=== PATIENT | male | born 1935 | race Caucasian/White ===

== ENCOUNTER 2020-11-06 18:04 | Emergency (ER) | payer MEDICARE ==
[~2020-11-06] VITALS: Ht 172.7 cm; Wt 97.7 kg
[2020-11-06 19:00] LABS: BASOPHILS % 0.8 % (0.0-2.0); EOSINOPHILS % 3.3 % (0.0-5.0); HEMATOCRIT. 41.3 % (42.0-52.0); HEMOGLOBIN. 14.2 g/dL (14.0-18.0); LYMPHOCYTES % 42.6 % (20.0-50.0); MEAN CORPUSCULAR HEMOGLOBIN 31.2 pg (28.0-32.0); MEAN CORPUSCULAR VOLUME 90.8 fL (80.0-94.0); MEAN PLATELET VOLUME 8.5 fl (7.4-10.4); MONOCYTES % 8.3 % (2.0-8.0); PLATELET 228 x1000/uL (130-400); RED BLOOD CELL COUNT 4.55 mill/uL (4.7-6.1); RED CELL DISTRIBUTION WIDTH 13.7 % (11.6-14.6)
[2020-11-06 19:08] LABS: CHLORIDE 110 mEq/L (98-107)
[2020-11-06] MEDS ORDERED: IOHEXOL-350 100 ML BOTTLE ONE (19:08)
[2020-11-06 19:10] LABS: INR 1.1; PROTHROMBIN TIME 12.2 sec (9.6-11.0)
[2020-11-06 19:12] LABS: ETHANOL BLOOD < 10 mg/dL
[2020-11-06 19:15] LABS: LDL CHOLESTEROL 68 mg/dL (5-100)
[2020-11-06] MEDS ORDERED: *NO ASPIRIN X 24 HOURS XX SCH ×2 (19:15→19:30)
[2020-11-06] MEDS ORDERED: ALTEPLASE IV NR (19:30)
[2020-11-06] MEDS ORDERED: ALTEPLASE 50MG/VIAL IV NR (19:30)
[2020-11-06] MEDS ORDERED: SODIUM CHLORIDE 0.9% IV NR (19:30)
[2020-11-06 21:55] VITALS: BP 151/78
== END 2020-11-06 22:29 | disposition short-term general hospital (02) ==
LOC: ER 19:44 → CANBEDREQ 22:09 → ER 22:29
DX: I63.9 Cerebral infarction, unspecified (principal); I10 Essential (primary) hypertension
CPT/HCPCS: 36415; 70450; 70496; 70498; 71045; 80053; 80320; 82962; 83721; 84484; 85025; 85610; 93005; 99291; J2997; Q9967; J7050; G0480

== ENCOUNTER 2021-05-17 16:56 | Inpatient (IN) | payer MEDICARE ==
[~2021-05-17] VITALS: Ht 180.3 cm; Wt 71.8 kg
[2021-05-17] MEDS ORDERED: MORPHINE SULFATE 4 MG/ML CPJ (NOT FOR IM USE) IV STA (17:32)
[2021-05-17] MEDS ORDERED: ASPIRIN 81MG TABLET PO ONE (17:45)
[2021-05-17 17:46] LABS: BASOPHILS % 0.8 % (0.0-2.0); EOSINOPHILS % 4.5 % (0.0-5.0); HEMATOCRIT. 39.4 % (42.0-52.0); HEMOGLOBIN. 13.5 g/dL (14.0-18.0); LYMPHOCYTES % 33.6 % (20.0-50.0); MEAN CORPUSCULAR HEMOGLOBIN 32.4 pg (28.0-32.0); MEAN CORPUSCULAR VOLUME 94.5 fL (80.0-94.0); MEAN PLATELET VOLUME 8.4 fl (7.4-10.4); MONOCYTES % 9.9 % (2.0-8.0); NEUTROPHILS % 51.2 % (40.0-76.0); PLATELET 197 x1000/uL (130-400); RED BLOOD CELL COUNT 4.17 mill/uL (4.7-6.1); RED CELL DISTRIBUTION WIDTH 13.9 % (11.6-14.6)
[2021-05-17 17:54] LABS: CHLORIDE 112 mEq/L (98-107)
[2021-05-18] MEDS ORDERED: CLONIDINE 0.1MG TABLET PO PRN (09:00)
[2021-05-18] MEDS ORDERED: GUAIFENESIN 200MG/10ML SUGAR FREE UDC PO PRN (09:00)
[2021-05-18] MEDS ORDERED: ACETAMINOPHEN 325MG TABLET PO PRN (09:00)
[2021-05-18] MEDS ORDERED: MORPHINE SULFATE 2 MG/ML CPJ (NOT FOR IM USE) IV PRN (09:00)
[2021-05-18] MEDS ORDERED: ACETAMINOPHEN 650MG SUPP PR PRN (09:00)
[2021-05-18] MEDS ORDERED: DIGOXIN 500MCG/2ML AMP IV SCH (09:00)
[2021-05-18] MEDS ORDERED: ONDANSETRON HCL 4MG/2ML INJ IV PRN (09:00)
[2021-05-18] MEDS ORDERED: LEVOFLOXACIN 500MG PREMIX 100 ML IV SCH ×2 (09:00→10:00)
[2021-05-18] MEDS ORDERED: IPRATROPIUM/ALBUTEROL 0.5-3(2.5)MG/3ML NEB NEB PRN (09:00)
[2021-05-18] MEDS ORDERED: NA PHOS,M-B/NA PHOS,DI-BA ENEMA 118ML PR PRN (09:00)
[2021-05-18] MEDS ORDERED: HYDROCODONE/ACETAMINOPHEN 5/325MG TABLET PO PRN (09:00)
[2021-05-18] MEDS ORDERED: MAGNESIUM/ALUMINUM HYDROXIDE/SIMETHICONE 30ML UDC PO PRN (09:00)
[2021-05-18] MEDS ORDERED: DOCUSATE SODIUM 100MG CAPSULE PO PRN (09:00)
[2021-05-18] MEDS ORDERED: NALOXONE HCL 0.4MG/ML VIAL IV PRN (09:15)
[2021-05-18] MEDS: ASPIRIN 81MG EC TABLET PO SCH (09:24)
[2021-05-18] MEDS ORDERED: DILTIAZEM 125MG/125ML PMX 125 ML IV SCH (10:00)
[2021-05-18 10:59] LABS: CLARITY URINE CLOUDY (CLEAR); COLOR URINE YELLOW (YELLOW); KETONES URINE TRACE (NEGATIVE); LEUKOCYTE ESTERASE URINE 1+ (NEGATIVE); NITRITE URINE POSITIVE (NEGATIVE); OCCULT BLOOD URINE 1+ (NEGATIVE); PH URINE 6.5 (4.5-8.0); PROTEIN URINE NEGATIVE (NEGATIVE); SPECIFIC GRAVITY URINE 1.018 (1.005-1.030); UROBILINOGEN URINE 0.2 E.U./dL (0.2-1.0)
[2021-05-18 11:08] LABS: BASOPHILS % 0.9 % (0.0-2.0); EOSINOPHILS % 2.1 % (0.0-5.0); HEMATOCRIT. 41.2 % (42.0-52.0); LYMPHOCYTES % 25.5 % (20.0-50.0); MEAN CORPUSCULAR HEMOGLOBIN 31.9 pg (28.0-32.0); MEAN CORPUSCULAR VOLUME 94.3 fL (80.0-94.0); MONOCYTES % 8.1 % (2.0-8.0); NEUTROPHILS % 63.4 % (40.0-76.0); PLATELET 191 x1000/uL (130-400); RED BLOOD CELL COUNT 4.37 mill/uL (4.7-6.1); RED CELL DISTRIBUTION WIDTH 13.7 % (11.6-14.6)
[2021-05-18 11:16] LABS: CHLORIDE 111 mEq/L (98-107)
[2021-05-18 12:07] LABS: BG CARBOXYHEMOGLOBIN 0.6 % (0.5-1.5); BG DEOXYHEMOGLOBIN 2.6 % (0.0-5.0); BG FRACTION INSPIRED OXYGEN 28; BG HCO3 ACT 21.4 mmol/L (22.0-26.0); BG METHEMOGLOBIN 0.1 % (0.0-1.5); BG OXYGEN SATURATION 97.4 % (92.0-98.5); BG OXYHEMOGLOBIN 96.7 % (94.0-97.0); BG PCO2 32.6 mmHg (35.0-45.0); BG PH 7.435 (7.350-7.450); BG PO2 97.6 mmHg (75.0-100.0); BG TOTAL HEMOGLOBIN 13.8 g/dL (12.0-18.0); BG VENT MODE NASAL CANNULA
[2021-05-18] MEDS: DILTIAZEM HCL 60MG TABLET PO SCH ×2 (15:19→20:51)
[2021-05-18 16:00] VITALS: BP 132/71
[2021-05-18 16:40] VITALS: BP 132/71
[2021-05-18] MEDS ORDERED: METO-539 PO (17:07)
[2021-05-18] MEDS ORDERED: LOSA50TA41 PO (17:07)
[2021-05-18] MEDS ORDERED: APIX2.5T PO (17:07)
[2021-05-18] MEDS ORDERED: ATOR40TA70 PO (17:07)
[2021-05-18 17:47] VITALS: BP 138/72
[2021-05-18 20:00] VITALS: BP 136/80
[2021-05-18 20:50] LABS: CREATINE KINASE 58 IU/L (39-308)
[2021-05-18 20:51] LABS: CREATINE KINASE MB FRACTION 1.3 ng/mL (0.5-3.6)
[2021-05-18 22:00] VITALS: BP 142/71
[2021-05-18 23:21] LABS: CREATINE KINASE 63 IU/L (39-308)
[2021-05-18 23:22] LABS: CREATINE KINASE MB FRACTION 1.2 ng/mL (0.5-3.6)
[2021-05-18] MEDS: LORAZEPAM 0.5MG TABLET PO PRN (23:42)
[2021-05-18 23:53] LABS: INR 1.1; PROTHROMBIN TIME 12.1 sec (9.6-11.0)
[2021-05-19] VITALS (12 sets, daily range): BP systolic 110–154; BP diastolic 76–101
[2021-05-19] MEDS: DILTIAZEM HCL 60MG TABLET PO SCH (02:44)
[2021-05-19] MEDS: DILTIAZEM HCL 90MG TABLET PO SCH ×3 (06:16→17:33)
[2021-05-19 06:27] LABS: BASOPHILS % 0.9 % (0.0-2.0); EOSINOPHILS % 2.1 % (0.0-5.0); HEMOGLOBIN. 13.1 g/dL (14.0-18.0); LYMPHOCYTES % 27.4 % (20.0-50.0); MEAN CORPUSCULAR HEMOGLOBIN 32.3 pg (28.0-32.0); MEAN CORPUSCULAR VOLUME 91.4 fL (80.0-94.0); MEAN PLATELET VOLUME 7.7 fl (7.4-10.4); MONOCYTES % 8.6 % (2.0-8.0); PLATELET 202 x1000/uL (130-400); RED BLOOD CELL COUNT 4.05 mill/uL (4.7-6.1); RED CELL DISTRIBUTION WIDTH 13.7 % (11.6-14.6)
[2021-05-19 06:39] LABS: CHLORIDE 112 mEq/L (98-107)
[2021-05-19 06:46] LABS: LDL CHOLESTEROL 65 mg/dL (5-100)
[2021-05-19 06:47] LABS: HDL CHOLESTEROL 43 mg/dL (40-59)
[2021-05-19 06:48] LABS: T4 FREE 1.14 ng/dL (0.76-1.46)
[2021-05-19] MEDS: LORAZEPAM 0.5MG TABLET PO PRN (07:17)
[2021-05-19] MEDS: DIPHENHYDRAMINE 50MG/ML VIAL IV PRN ×2 (08:29→16:12)
[2021-05-19] MEDS ORDERED: *PATIENT'S OWN MEDICATION STORAGE XX SCH (08:30)
[2021-05-19] MEDS: ASPIRIN 81MG EC TABLET PO SCH (09:00)
[2021-05-19] MEDS: DIGOXIN 500MCG/2ML AMP IV SCH (10:26)
[2021-05-19] MEDS ORDERED: DILTIAZEM HCL 5MG/ML 5ML VIAL IV PRN (10:30)
[2021-05-19] MEDS: DILTIAZEM HCL 5MG/ML 5ML VIAL IV PRN (10:44)
[2021-05-19] MEDS ORDERED: LEVOFLOXACIN 250MG PREMIX 50 ML IV SCH (11:00)
[2021-05-19] MEDS ORDERED: AMIODARONE HCL 50MG/ML 3ML VIAL IV ONE (11:15)
[2021-05-19] MEDS: LEVOFLOXACIN 500MG PREMIX 100 ML IV SCH (11:43)
[2021-05-19] MEDS: ENOXAPARIN 80MG/0.8ML SYR SUBCUT SCH ×2 (11:47→21:18)
[2021-05-19] MEDS: LORAZEPAM 2MG/ML CPJ IV PRN (12:16)
[2021-05-19] MEDS ORDERED: AMIODARONE HCL 150 MG in DEXT 5% WATER 100 ML IV SCH (12:30)
[2021-05-19] MEDS: AMIODARONE HCL 900 MG in DEXT 5% WATER 482 ML IV SCH ×2 (13:15→21:28)
[2021-05-20] VITALS (11 sets, daily range): BP systolic 123–152; BP diastolic 67–93
[2021-05-20] MEDS: AMIODARONE HCL 900 MG in DEXT 5% WATER 482 ML IV SCH (05:41)
[2021-05-20 05:49] LABS: BASOPHILS % 0.6 % (0.0-2.0); EOSINOPHILS % 1.2 % (0.0-5.0); HEMATOCRIT. 40.8 % (42.0-52.0); HEMOGLOBIN. 14.1 g/dL (14.0-18.0); LYMPHOCYTES % 17.1 % (20.0-50.0); MEAN CORPUSCULAR HEMOGLOBIN 31.8 pg (28.0-32.0); MEAN CORPUSCULAR VOLUME 92.1 fL (80.0-94.0); MONOCYTES % 9.3 % (2.0-8.0); NEUTROPHILS % 71.8 % (40.0-76.0); PLATELET 206 x1000/uL (130-400); RED BLOOD CELL COUNT 4.43 mill/uL (4.7-6.1); RED CELL DISTRIBUTION WIDTH 13.2 % (11.6-14.6)
[2021-05-20] MEDS: DILTIAZEM HCL 90MG TABLET PO SCH ×4 (06:00→19:10)
[2021-05-20] MEDS: ASPIRIN 81MG EC TABLET PO SCH (09:15)
[2021-05-20] MEDS: ENOXAPARIN 80MG/0.8ML SYR SUBCUT SCH ×2 (09:15→21:43)
[2021-05-20] MEDS: AMIODARONE HCL 200 MG TABLET PO SCH ×2 (10:07→21:43)
[2021-05-20] MEDS ORDERED: LIDOCAINE HCL 1% 20ML VIAL (Pyxis) INJ ONE (10:07)
[2021-05-20] MEDS: DIPHENHYDRAMINE 50MG/ML VIAL IV PRN ×2 (10:08→23:53)
[2021-05-20] MEDS: LEVOFLOXACIN 500MG PREMIX 100 ML IV SCH (13:00)
[2021-05-20] MEDS: DIGOXIN 500MCG/2ML AMP IV SCH (19:11)
[2021-05-20] MEDS: LORAZEPAM 2MG/ML CPJ IV PRN (21:50)
[2021-05-21] VITALS (12 sets, daily range): BP systolic 100–136; BP diastolic 57–94
[2021-05-21] MEDS: DILTIAZEM HCL 5MG/ML 5ML VIAL IV PRN (00:07)
[2021-05-21] MEDS: DILTIAZEM HCL 90MG TABLET PO SCH ×2 (06:00)
[2021-05-21 06:46] LABS: BASOPHILS % 0.5 % (0.0-2.0); EOSINOPHILS % 0.9 % (0.0-5.0); HEMATOCRIT. 42.4 % (42.0-52.0); HEMOGLOBIN. 14.7 g/dL (14.0-18.0); LYMPHOCYTES % 23.4 % (20.0-50.0); MEAN CORPUSCULAR HEMOGLOBIN 31.8 pg (28.0-32.0); MEAN CORPUSCULAR VOLUME 91.8 fL (80.0-94.0); MEAN PLATELET VOLUME 8.6 fl (7.4-10.4); MONOCYTES % 11.2 % (2.0-8.0); PLATELET 215 x1000/uL (130-400); RED BLOOD CELL COUNT 4.63 mill/uL (4.7-6.1); RED CELL DISTRIBUTION WIDTH 13.4 % (11.6-14.6)
[2021-05-21] MEDS ORDERED: DIGOXIN 500MCG/2ML AMP IV SCH (08:15)
[2021-05-21] MEDS: AMIODARONE HCL 200 MG TABLET PO SCH ×2 (08:49→21:00)
[2021-05-21] MEDS: ASPIRIN 81MG EC TABLET PO SCH (08:49)
[2021-05-21] MEDS: ENOXAPARIN 80MG/0.8ML SYR SUBCUT SCH ×2 (08:49→21:44)
[2021-05-21] MEDS ORDERED: DILTIAZEM 125MG/125ML PMX 100 ML IV PRN (11:00)
[2021-05-21] MEDS: DILTIAZEM 125MG/125ML PMX 100 ML IV SCH ×2 (11:34→21:45)
[2021-05-21] MEDS: LEVOFLOXACIN 500MG PREMIX 100 ML IV SCH (11:37)
[2021-05-21] MEDS: MIDODRINE HCL 5MG TABLET PO SCH ×3 (11:38→17:00)
[2021-05-21] MEDS: METOPROLOL TARTRATE 50MG TABLET PO SCH ×2 (12:00→21:00)
[2021-05-21] MEDS: DEXT 5%/0.45% NACL 1000ML 1,000 ML IV SCH (15:30)
[2021-05-21] MEDS: DIGOXIN 500MCG/2ML AMP IV SCH (18:00)
[2021-05-21 21:22] LABS: BG BASE EXCESS -0.2 mmol/L (-2.0-2.0); BG CARBOXYHEMOGLOBIN 0.3 % (0.5-1.5); BG DEOXYHEMOGLOBIN 3.8 % (0.0-5.0); BG FRACTION INSPIRED OXYGEN 21; BG HCO3 ACT 23.6 mmol/L (22.0-26.0); BG METHEMOGLOBIN 0.1 % (0.0-1.5); BG OXYGEN SATURATION 96.2 % (92.0-98.5); BG OXYHEMOGLOBIN 95.8 % (94.0-97.0); BG PCO2 35.8 mmHg (35.0-45.0); BG PH 7.436 (7.350-7.450); BG PO2 80.9 mmHg (75.0-100.0); BG SAMPLE SITE RIGHT RADIAL; BG VENT MODE ROOM AIR
[2021-05-22] VITALS (9 sets, daily range): BP systolic 109–154; BP diastolic 61–78
[2021-05-22] MEDS: DEXT 5%/0.45% NACL 1000ML 1,000 ML IV SCH (04:37)
[2021-05-22 06:25] LABS: BASOPHILS % 0.4 % (0.0-2.0); EOSINOPHILS % 1.9 % (0.0-5.0); HEMATOCRIT. 37.6 % (42.0-52.0); HEMOGLOBIN. 13.1 g/dL (14.0-18.0); LYMPHOCYTES % 21.7 % (20.0-50.0); MEAN CORPUSCULAR VOLUME 91.8 fL (80.0-94.0); MEAN PLATELET VOLUME 8.3 fl (7.4-10.4); MONOCYTES % 11.2 % (2.0-8.0); NEUTROPHILS % 64.8 % (40.0-76.0); PLATELET 188 x1000/uL (130-400); RED CELL DISTRIBUTION WIDTH 13.2 % (11.6-14.6)
[2021-05-22] MEDS: DILTIAZEM 125MG/125ML PMX 100 ML IV SCH (07:00)
[2021-05-22] MEDS: ENOXAPARIN 80MG/0.8ML SYR SUBCUT SCH (08:09)
[2021-05-22] MEDS: AMIODARONE HCL 200 MG TABLET PO SCH (08:09)
[2021-05-22] MEDS: MIDODRINE HCL 5MG TABLET PO SCH ×2 (08:09→14:12)
[2021-05-22] MEDS: ASPIRIN 81MG EC TABLET PO SCH (08:10)
[2021-05-22] MEDS: METOPROLOL TARTRATE 50MG TABLET PO SCH (09:00)
[2021-05-22] MEDS ORDERED: LEVOFLOXACIN 250MG PREMIX 50 ML IV SCH (11:00)
[2021-05-22] MEDS ORDERED: DILTIAZEM HCL 60MG TABLET PO SCH (12:00)
[2021-05-22] MEDS ORDERED: METO-539 PO (12:16)
[2021-05-22] MEDS ORDERED: MIDO5TAB4 MT ×3 (12:16→12:18)
[2021-05-22] MEDS ORDERED: DILT60TA35 MT (12:16)
[2021-05-22] MEDS ORDERED: AMIO100T4 PO (12:16)
== END 2021-05-22 17:38 | disposition home or self-care (01) | DRG 308 ==
LOC: ER 16:56 → MICUSO 21:04 → ENRESERV 05-18 15:31 → 3WST 05-18 16:05
PROVIDERS: ADMIT Internal Medicine; ATTEND Internal Medicine
PROC: 05HY33Z Insertion of Infusion Device into Upper Vein, Percutaneous Approach (ICD-10-PCS; principal; 2021-05-20)
PROC: B543ZZA Ultrasonography of Right Jugular Veins, Guidance (ICD-10-PCS; 2021-05-20)
DX: I48.0 Paroxysmal atrial fibrillation (principal); G93.41 Metabolic encephalopathy; D68.59 Other primary thrombophilia; J98.11 Atelectasis; N17.9 Acute kidney failure, unspecified; I69.320 Aphasia following cerebral infarction; R79.89 Other specified abnormal findings of blood chemistry; Z20.822 Contact with and (suspected) exposure to COVID-19; D64.9 Anemia, unspecified; I10 Essential (primary) hypertension; I69.391 Dysphagia following cerebral infarction; Z82.49 Family history of ischemic heart disease and other diseases of the circulatory system; Z79.899 Other long term (current) drug therapy; Z87.891 Personal history of nicotine dependence; Z79.01 Long term (current) use of anticoagulants
CPT/HCPCS: 36415; 36600; 70551; 71045; 76770; 76937; 78580; 80048; 80053; 80061; 80162; 81003; 82375; 82550; 82553; 82805; 82962; 83735; 83880; 84439; 84443; 84484; 85025; 87426; 92610; 93005; 93306; 93970; 97166; 99285; C1725; J0282; J1160; J1200; J1650; J1956; J2060; J2270; J3490; J7060

== ENCOUNTER 2022-05-11 12:47 | Inpatient (IN) | payer MEDICARE ==
[~2022-05-11] VITALS: Ht 170.2 cm; Wt 65.8 kg
[~2022-05-11 12:47] MED LIST: AMIO100T4 PO; APIX2.5T PO; ATOR40TA70 PO; DIGO125T80 MT; DILT60TA35 MT; DULO20CA18 MT; LEVE10006 MT; METO-539 PO; MIDO5TAB4 MT
[2022-05-11 13:52] LABS: BG BASE EXCESS 1.3 mmol/L (-2.0-2.0); BG CARBOXYHEMOGLOBIN 0.3 % (0.5-1.5); BG DEOXYHEMOGLOBIN 3.8 % (0.0-5.0); BG FRACTION INSPIRED OXYGEN 21; BG HCO3 ACT 24.9 mmol/L (22.0-26.0); BG METHEMOGLOBIN 0.1 % (0.0-1.5); BG OXYGEN SATURATION 96.2 % (92.0-98.5); BG OXYHEMOGLOBIN 95.8 % (94.0-97.0); BG PCO2 35.5 mmHg (35.0-45.0); BG PH 7.463 (7.350-7.450); BG PO2 84.7 mmHg (75.0-100.0); BG SAMPLE SITE RIGHT RADIAL; BG VENT MODE ROOM AIR
[2022-05-11 14:10] LABS: BASOPHILS % 0.5 % (0.0-2.0); EOSINOPHILS % 0.1 % (0.0-5.0); HEMATOCRIT. 30.7 % (42.0-52.0); HEMOGLOBIN. 10.6 g/dL (14.0-18.0); LYMPHOCYTES % 7.7 % (20.0-50.0); MEAN CORPUSCULAR HEMOGLOBIN 33.7 pg (28.0-32.0); MEAN CORPUSCULAR VOLUME 97.6 fL (80.0-94.0); MEAN PLATELET VOLUME 7.8 fl (7.4-10.4); MONOCYTES % 5.3 % (2.0-8.0); NEUTROPHILS % 86.4 % (40.0-76.0); PLATELET 199 x1000/uL (130-400); RED BLOOD CELL COUNT 3.14 mill/uL (4.7-6.1); RED CELL DISTRIBUTION WIDTH 14.7 % (11.6-14.6)
[2022-05-11 14:19] LABS: INR 1.1; PROTHROMBIN TIME 11.8 sec (9.6-11.0)
[2022-05-11 14:23] LABS: CHLORIDE 107 mEq/L (98-107)
[2022-05-11 14:39] LABS: CREATINE KINASE 65 IU/L (39-308); ETHANOL BLOOD < 10 mg/dL
[2022-05-11] MEDS ORDERED: SODIUM CHLORIDE 0.9% 500 ML IV ONE (16:00)
[2022-05-11] MEDS ORDERED: LEVOTHYROXINE SODIUM 100 MCG/ VIAL IV NR (16:00)
[2022-05-11] MEDS ORDERED: SODIUM CHLORIDE 0.45% 1,000 ML IV ONE (17:15)
[2022-05-11] MEDS ORDERED: ONDANSETRON HCL 4MG/2ML INJ IV PRN (17:15)
[2022-05-11] MEDS ORDERED: DOCUSATE SODIUM 100MG CAPSULE PO SCH (17:15)
[2022-05-11] MEDS ORDERED: ACETAMINOPHEN 325MG TABLET PO PRN (17:15)
[2022-05-11 17:46] LABS: T4 FREE 0.41 ng/dL (0.76-1.46)
[2022-05-11 18:00] VITALS: BP 111/62
[2022-05-11 20:00] VITALS: BP 132/67
[2022-05-12] VITALS: BP 122/63
[2022-05-12 00:55] LABS: CLARITY URINE CLOUDY (CLEAR); COLOR URINE DARK YELLOW (YELLOW); KETONES URINE 1+ (NEGATIVE); LEUKOCYTE ESTERASE URINE NEGATIVE (NEGATIVE); NITRITE URINE NEGATIVE (NEGATIVE); OCCULT BLOOD URINE NEGATIVE (NEGATIVE); PH URINE 5.5 (4.5-8.0); PROTEIN URINE TRACE (NEGATIVE); SPECIFIC GRAVITY URINE 1.027 (1.005-1.030)
[2022-05-12 01:05] LABS: CREATINE KINASE MB FRACTION 1.3 ng/mL (0.5-3.6)
[2022-05-12 01:16] LABS: *AMPHETAMINES SCREEN URINE NEGATIVE (NEGATIVE); *BARBITURATES SCREEN URINE NEGATIVE (NEGATIVE); *BENZODIAZEPINES SCREEN URINE NEGATIVE (NEGATIVE); *COCAINE SCREEN URINE NEGATIVE (NEGATIVE); CANNABINOID URINE SCREEN NEGATIVE (NEGATIVE); METHADONE URINE SCREEN NEGATIVE (NEGATIVE); OPIATES URINE SCREEN NEGATIVE (NEGATIVE); PHENCYCLIDINE URINE SCREEN NEGATIVE (NEGATIVE)
[2022-05-12 04:00] VITALS: BP 127/68
[2022-05-12 07:25] LABS: CREATINE KINASE 36 IU/L (39-308); CREATINE KINASE MB FRACTION < 1.0 ng/mL (0.5-3.6)
[2022-05-12 08:00] VITALS: BP 127/66
[2022-05-12] MEDS: DOCUSATE SODIUM SUGAR FREE 100MG/10ML UDC PO SCH ×2 (08:46→16:33)
[2022-05-12] MEDS ORDERED: ENOXAPARIN 40MG/0.4ML SYR SUBCUT SCH (09:00)
[2022-05-12] MEDS ORDERED: SODIUM CHLORIDE 0.45% 1,000 ML IV SCH (11:45)
[2022-05-12 12:00] VITALS: BP 133/70
[2022-05-12] MEDS ORDERED: LEVOTHYROXINE SODIUM 100 MCG/ VIAL IV SCH (13:00)
[2022-05-12 16:00] VITALS: BP 105/72
[2022-05-12] MEDS: DEXT 5%/0.45% NACL 1000ML 1,000 ML IV SCH (17:19)
[2022-05-12] MEDS ORDERED: VANCOMYCIN 2,000 MG in DEXT 5% WATER 500 ML IV NR (19:00)
[2022-05-12 20:00] VITALS: BP 133/70
[2022-05-13] VITALS: BP 138/71
[2022-05-13 04:00] VITALS: BP 134/65
[2022-05-13] MEDS: DOCUSATE SODIUM SUGAR FREE 100MG/10ML UDC PO SCH ×2 (09:00→16:08)
[2022-05-13] MEDS: APIXABAN 2.5 MG TABLET PO SCH ×2 (09:00→16:08)
[2022-05-13] MEDS: DEXT 5%/0.45% NACL 1000ML 1,000 ML IV SCH (10:14)
[2022-05-13 10:48] LABS: BG BASE EXCESS 1.4 mmol/L (-2.0-2.0); BG CARBOXYHEMOGLOBIN 0.3 % (0.5-1.5); BG DEOXYHEMOGLOBIN 2.6 % (0.0-5.0); BG HCO3 ACT 24.9 mmol/L (22.0-26.0); BG METHEMOGLOBIN 0.3 % (0.0-1.5); BG OXYGEN SATURATION 97.4 % (92.0-98.5); BG OXYHEMOGLOBIN 96.8 % (94.0-97.0); BG PCO2 34.9 mmHg (35.0-45.0); BG PH 7.471 (7.350-7.450); BG PO2 108.2 mmHg (75.0-100.0); BG SAMPLE SITE RIGHT RADIAL; BG TOTAL HEMOGLOBIN 10.1 g/dL (12.0-18.0); BG VENT MODE ROOM AIR
[2022-05-13] MEDS: LEVOTHYROXINE SODIUM 100 MCG/ VIAL IV SCH (11:31)
[2022-05-13 12:00] VITALS: BP 131/72
[2022-05-13] MEDS ORDERED: CEFTRIAXONE 2 G PREMIX 50 ML IV SCH (14:45)
[2022-05-13 16:00] VITALS: BP 120/62
[2022-05-13] MEDS: CEFTRIAXONE 2 G in DEXTROSE 5% WATER 50 ML IV SCH (16:08)
[2022-05-13 16:39] LABS: BASOPHILS % 0.5 % (0.0-2.0); EOSINOPHILS % 0.8 % (0.0-5.0); HEMATOCRIT. 31.6 % (42.0-52.0); LYMPHOCYTES % 12.7 % (20.0-50.0); MEAN CORPUSCULAR HEMOGLOBIN 33.9 pg (28.0-32.0); MEAN CORPUSCULAR VOLUME 96.8 fL (80.0-94.0); MEAN PLATELET VOLUME 7.5 fl (7.4-10.4); MONOCYTES % 6.8 % (2.0-8.0); NEUTROPHILS % 79.2 % (40.0-76.0); PLATELET 176 x1000/uL (130-400); RED BLOOD CELL COUNT 3.26 mill/uL (4.7-6.1); RED CELL DISTRIBUTION WIDTH 14.3 % (11.6-14.6)
[2022-05-13 20:00] VITALS: BP 127/64
[2022-05-13] MEDS ORDERED: VANCOMYCIN 1G PREMIX 200 ML IV SCH (20:00)
[2022-05-14] VITALS: BP 120/61
[2022-05-14] MEDS: DEXT 5%/0.45% NACL 1000ML 1,000 ML IV SCH ×2 (02:20→19:04)
[2022-05-14 04:00] VITALS: BP 122/61
[2022-05-14 08:15] VITALS: BP 123/66
[2022-05-14] MEDS: APIXABAN 2.5 MG TABLET PO SCH ×2 (10:36→17:00)
[2022-05-14] MEDS: DOCUSATE SODIUM SUGAR FREE 100MG/10ML UDC PO SCH ×2 (10:36→17:00)
[2022-05-14] MEDS: LEVOTHYROXINE SODIUM 100 MCG/ VIAL IV SCH (10:36)
[2022-05-14 12:00] VITALS: BP 134/90
[2022-05-14] MEDS: CEFTRIAXONE 2 G in DEXTROSE 5% WATER 50 ML IV SCH (13:54)
[2022-05-14] MEDS: METRONIDAZOLE 500MG TABLET PO SCH ×3 (14:00→21:08)
[2022-05-14] MEDS: CLONIDINE 0.1MG TABLET PO SCH ×2 (15:22→21:08)
[2022-05-14 16:00] VITALS: BP 135/65
[2022-05-14] MEDS ORDERED: KCL 20MEQ/100ML PREMIX 100 ML IV NR (16:00)
[2022-05-14 20:00] VITALS: BP 115/60
[2022-05-14] MEDS ORDERED: VANCOMYCIN 750MG PREMIX 150 ML IV NR (21:00)
[2022-05-15] VITALS: BP 118/63
[2022-05-15 04:00] VITALS: BP 109/73
[2022-05-15] MEDS: CLONIDINE 0.1MG TABLET PO SCH ×3 (05:59→21:04)
[2022-05-15] MEDS: METRONIDAZOLE 500MG TABLET PO SCH ×3 (05:59→21:04)
[2022-05-15 06:16] LABS: BASOPHILS % 0.7 % (0.0-2.0); EOSINOPHILS % 1.4 % (0.0-5.0); HEMATOCRIT. 27.2 % (42.0-52.0); HEMOGLOBIN. 9.6 g/dL (14.0-18.0); LYMPHOCYTES % 28.4 % (20.0-50.0); MEAN CORPUSCULAR HEMOGLOBIN 33.8 pg (28.0-32.0); MEAN CORPUSCULAR VOLUME 96.1 fL (80.0-94.0); MEAN PLATELET VOLUME 7.7 fl (7.4-10.4); MONOCYTES % 8.4 % (2.0-8.0); NEUTROPHILS % 61.1 % (40.0-76.0); PLATELET 174 x1000/uL (130-400); RED BLOOD CELL COUNT 2.83 mill/uL (4.7-6.1); RED CELL DISTRIBUTION WIDTH 14.3 % (11.6-14.6)
[2022-05-15 07:44] LABS: CHLORIDE 106 mEq/L (98-107)
[2022-05-15 08:00] VITALS: BP 131/69
[2022-05-15] MEDS: LEVOTHYROXINE SODIUM 100 MCG/ VIAL IV SCH (09:25)
[2022-05-15] MEDS: DOCUSATE SODIUM SUGAR FREE 100MG/10ML UDC PO SCH ×2 (09:25→17:55)
[2022-05-15] MEDS: APIXABAN 2.5 MG TABLET PO SCH ×2 (09:25→17:55)
[2022-05-15] MEDS: KCL 20MEQ/100ML PREMIX 100 ML IV SCH ×2 (11:51→14:35)
[2022-05-15 12:00] VITALS: BP 132/82
[2022-05-15] MEDS: DEXT 5%/0.45% NACL 1000ML 1,000 ML IV SCH (12:22)
[2022-05-15] MEDS: CEFTRIAXONE 2 G in DEXTROSE 5% WATER 50 ML IV SCH (17:54)
[2022-05-15 20:00] VITALS: BP 111/64
[2022-05-15] MEDS ORDERED: VANCOMYCIN 750MG PREMIX 150 ML IV SCH (21:00)
[2022-05-16] VITALS: BP 125/65
[2022-05-16] MEDS: DEXT 5%/0.45% NACL 1000ML 1,000 ML IV SCH ×2 (00:40→15:06)
[2022-05-16 04:00] VITALS: BP 125/71
[2022-05-16] MEDS: METRONIDAZOLE 500MG TABLET PO SCH ×3 (05:26→21:33)
[2022-05-16] MEDS: CLONIDINE 0.1MG TABLET PO SCH ×4 (05:27→21:30)
[2022-05-16 08:00] VITALS: BP 140/73
[2022-05-16] MEDS: LEVOTHYROXINE SODIUM 100 MCG/ VIAL IV SCH (09:03)
[2022-05-16] MEDS: APIXABAN 2.5 MG TABLET PO SCH ×2 (09:03→18:14)
[2022-05-16] MEDS: DOCUSATE SODIUM SUGAR FREE 100MG/10ML UDC PO SCH ×2 (09:03→17:00)
[2022-05-16 12:00] VITALS: BP 116/57
[2022-05-16] MEDS: CEFTRIAXONE 2 G in DEXTROSE 5% WATER 50 ML IV SCH (15:09)
[2022-05-16 16:00] VITALS: BP 106/54
[2022-05-16 20:00] VITALS: BP 98/56
[2022-05-16] MEDS ORDERED: VANCOMYCIN 1G PREMIX 200 ML IV SCH (20:00)
[2022-05-17] VITALS: BP 114/55
[2022-05-17] MEDS: DEXT 5%/0.45% NACL 1000ML 1,000 ML IV SCH ×2 (01:30→14:21)
[2022-05-17 04:00] VITALS: BP 155/76
[2022-05-17] MEDS: METRONIDAZOLE 500MG TABLET PO SCH ×3 (05:35→22:16)
[2022-05-17] MEDS: CLONIDINE 0.1MG TABLET PO SCH ×3 (05:35→22:16)
[2022-05-17 07:30] VITALS: BP 137/74
[2022-05-17 08:40] LABS: HEMATOCRIT. 28.4 % (42.0-52.0); MEAN CORPUSCULAR HEMOGLOBIN 34.2 pg (28.0-32.0); MEAN CORPUSCULAR VOLUME 97.1 fL (80.0-94.0); MEAN PLATELET VOLUME 7.9 fl (7.4-10.4); PLATELET 183 x1000/uL (130-400); RED BLOOD CELL COUNT 2.92 mill/uL (4.7-6.1); RED CELL DISTRIBUTION WIDTH 14.4 % (11.6-14.6)
[2022-05-17 09:08] LABS: CHLORIDE 104 mEq/L (98-107)
[2022-05-17 09:17] LABS: HDL CHOLESTEROL 40 mg/dL (40-59); LDL CHOLESTEROL 66 mg/dL (5-100)
[2022-05-17] MEDS: DOCUSATE SODIUM SUGAR FREE 100MG/10ML UDC PO SCH ×2 (09:20→17:00)
[2022-05-17] MEDS: LEVOTHYROXINE SODIUM 100 MCG/ VIAL IV SCH (09:20)
[2022-05-17] MEDS: APIXABAN 2.5 MG TABLET PO SCH ×2 (09:20→17:00)
[2022-05-17 11:49] VITALS: BP 153/83
[2022-05-17 12:25] LABS: PLATELET ESTIMATE NORMAL
[2022-05-17] MEDS: CEFTRIAXONE 2 G in DEXTROSE 5% WATER 50 ML IV SCH (14:20)
[2022-05-17 16:00] VITALS: BP 134/66
[2022-05-17 20:00] VITALS: BP 139/69
[2022-05-18] VITALS: BP 147/71
[2022-05-18] MEDS: DEXT 5%/0.45% NACL 1000ML 1,000 ML IV SCH ×2 (03:10→15:38)
[2022-05-18 04:00] VITALS: BP 124/66
[2022-05-18] MEDS: METRONIDAZOLE 500MG TABLET PO SCH ×3 (05:39→21:49)
[2022-05-18] MEDS: CLONIDINE 0.1MG TABLET PO SCH ×3 (05:39→21:49)
[2022-05-18 06:11] LABS: CHLORIDE 105 mEq/L (98-107)
[2022-05-18 08:00] VITALS: BP 103/61
[2022-05-18] MEDS: DOCUSATE SODIUM SUGAR FREE 100MG/10ML UDC PO SCH ×2 (09:12→18:30)
[2022-05-18] MEDS: APIXABAN 2.5 MG TABLET PO SCH ×2 (09:12→18:30)
[2022-05-18] MEDS: LEVOTHYROXINE SODIUM 100 MCG/ VIAL IV SCH (09:13)
[2022-05-18 09:48] LABS: BASOPHILS % 0.5 % (0.0-2.0); EOSINOPHILS % 0.2 % (0.0-5.0); HEMATOCRIT. 23.9 % (42.0-52.0); LYMPHOCYTES % 14.4 % (20.0-50.0); MEAN CORPUSCULAR HEMOGLOBIN 32.9 pg (28.0-32.0); MEAN CORPUSCULAR VOLUME 95.8 fL (80.0-94.0); MEAN PLATELET VOLUME 7.5 fl (7.4-10.4); MONOCYTES % 7.8 % (2.0-8.0); NEUTROPHILS % 77.1 % (40.0-76.0); PLATELET 175 x1000/uL (130-400); RED BLOOD CELL COUNT 2.49 mill/uL (4.7-6.1); RED CELL DISTRIBUTION WIDTH 14.5 % (11.6-14.6)
[2022-05-18 09:49] LABS: HEMOGLOBIN. 8.2 g/dL (14.0-18.0)
[2022-05-18 12:00] VITALS: BP 128/71
[2022-05-18] MEDS ORDERED: HALOPERIDOL LACTATE 5MG/ML VIAL IM NR (14:30)
[2022-05-18] MEDS: CEFTRIAXONE 2 G in DEXTROSE 5% WATER 50 ML IV SCH (14:52)
[2022-05-18 16:00] VITALS: BP 112/57
[2022-05-18 20:00] VITALS: BP 111/59
[2022-05-19] VITALS: BP 127/70
[2022-05-19 04:00] VITALS: BP 110/65
[2022-05-19] MEDS: DEXT 5%/0.45% NACL 1000ML 1,000 ML IV SCH ×2 (04:13→16:11)
[2022-05-19] MEDS: METRONIDAZOLE 500MG TABLET PO SCH ×3 (05:58→21:07)
[2022-05-19] MEDS: CLONIDINE 0.1MG TABLET PO SCH ×3 (05:58→21:07)
[2022-05-19 07:22] LABS: BASOPHILS % 0.7 % (0.0-2.0); EOSINOPHILS % 0.9 % (0.0-5.0); HEMATOCRIT. 21.3 % (42.0-52.0); HEMOGLOBIN. 7.4 g/dL (14.0-18.0); LYMPHOCYTES % 14.3 % (20.0-50.0); MEAN CORPUSCULAR HEMOGLOBIN 33.6 pg (28.0-32.0); MEAN CORPUSCULAR VOLUME 96.7 fL (80.0-94.0); MEAN PLATELET VOLUME 7.8 fl (7.4-10.4); MONOCYTES % 6.6 % (2.0-8.0); NEUTROPHILS % 77.5 % (40.0-76.0); PLATELET 161 x1000/uL (130-400); RED CELL DISTRIBUTION WIDTH 14.4 % (11.6-14.6)
[2022-05-19 08:00] VITALS: BP 136/74
[2022-05-19 08:02] LABS: CHLORIDE 104 mEq/L (98-107)
[2022-05-19] MEDS ORDERED: LIDOCAINE HCL/PF 1% 10 MG/ML 5ML VIAL ONE (08:45)
[2022-05-19] MEDS: DOCUSATE SODIUM SUGAR FREE 100MG/10ML UDC PO SCH ×2 (09:41→21:15)
[2022-05-19] MEDS: APIXABAN 2.5 MG TABLET PO SCH ×2 (09:41→21:07)
[2022-05-19] MEDS: LEVOTHYROXINE SODIUM 100 MCG/ VIAL IV SCH (09:41)
[2022-05-19 12:00] VITALS: BP 118/64
[2022-05-19] MEDS ORDERED: POTASSIUM CHLORIDE 20MEQ/PACKET PO NR (12:15)
[2022-05-19] MEDS: CEFTRIAXONE 2 G in DEXTROSE 5% WATER 50 ML IV SCH (13:27)
[2022-05-19] MEDS ORDERED: NA PHOS,M-B/NA PHOS,DI-BA ENEMA 118ML PR NR (15:45)
[2022-05-19 16:00] VITALS: BP 113/57
[2022-05-19] MEDS: PANTOPRAZOLE SODIUM 40 MG/VIAL IV SCH (16:08)
[2022-05-19] MEDS: POLYETHYLENE GLYCOL 3350 (17GM) 1 DOSE PACK PO SCH (16:09)
[2022-05-19 16:33] LABS: BASOPHILS % 0.8 % (0.0-2.0); EOSINOPHILS % 1.9 % (0.0-5.0); HEMATOCRIT. 22.3 % (42.0-52.0); HEMOGLOBIN. 7.8 g/dL (14.0-18.0); LYMPHOCYTES % 15.2 % (20.0-50.0); MEAN CORPUSCULAR HEMOGLOBIN 33.6 pg (28.0-32.0); MEAN CORPUSCULAR VOLUME 96.6 fL (80.0-94.0); MEAN PLATELET VOLUME 7.3 fl (7.4-10.4); MONOCYTES % 6.8 % (2.0-8.0); NEUTROPHILS % 75.3 % (40.0-76.0); PLATELET 155 x1000/uL (130-400); RED BLOOD CELL COUNT 2.31 mill/uL (4.7-6.1); RED CELL DISTRIBUTION WIDTH 14.7 % (11.6-14.6)
[2022-05-19 17:08] LABS: TOTAL IRON BINDING CAPACITY 178 ug/dL (250-450)
[2022-05-19 17:34] LABS: FOLIC ACID (FOLATE) SERUM 5.1 ng/mL (>5.38); PROSTRATE SPECIFIC AG TOTAL 1.54 ng/mL (0.0-4.0)
[2022-05-19 20:00] VITALS: BP 140/69
[2022-05-20] VITALS: BP 115/61
[2022-05-20 04:00] VITALS: BP 111/59
[2022-05-20] MEDS: DEXT 5%/0.45% NACL 1000ML 1,000 ML IV SCH ×2 (04:30→16:45)
[2022-05-20] MEDS: CLONIDINE 0.1MG TABLET PO SCH ×3 (05:41→22:00)
[2022-05-20] MEDS: METRONIDAZOLE 500MG TABLET PO SCH ×3 (05:52→22:49)
[2022-05-20 06:52] LABS: BASOPHILS % 0.6 % (0.0-2.0); EOSINOPHILS % 1.2 % (0.0-5.0); HEMATOCRIT. 21.8 % (42.0-52.0); HEMOGLOBIN. 7.7 g/dL (14.0-18.0); LYMPHOCYTES % 14.8 % (20.0-50.0); MEAN CORPUSCULAR HEMOGLOBIN 33.9 pg (28.0-32.0); MEAN CORPUSCULAR VOLUME 96.3 fL (80.0-94.0); MEAN PLATELET VOLUME 7.3 fl (7.4-10.4); MONOCYTES % 6.4 % (2.0-8.0); PLATELET 154 x1000/uL (130-400); RED BLOOD CELL COUNT 2.27 mill/uL (4.7-6.1); RED CELL DISTRIBUTION WIDTH 14.6 % (11.6-14.6)
[2022-05-20 07:13] LABS: CHLORIDE 105 mEq/L (98-107)
[2022-05-20 08:00] VITALS: BP 120/52
[2022-05-20] MEDS ORDERED: POTASSIUM CHLORIDE 20MEQ TABLET SR PO NR (08:00)
[2022-05-20] MEDS: PANTOPRAZOLE SODIUM 40 MG/VIAL IV SCH (09:12)
[2022-05-20] MEDS: DOCUSATE SODIUM SUGAR FREE 100MG/10ML UDC PO SCH ×2 (09:17→16:44)
[2022-05-20] MEDS: POLYETHYLENE GLYCOL 3350 (17GM) 1 DOSE PACK PO SCH (09:17)
[2022-05-20] MEDS: APIXABAN 2.5 MG TABLET PO SCH ×2 (09:17→16:44)
[2022-05-20] MEDS: LEVOTHYROXINE SODIUM 100 MCG/ VIAL IV SCH (09:18)
[2022-05-20 12:00] VITALS: BP 117/58
[2022-05-20 13:06] LABS: TOTAL IRON BINDING CAPACITY 158 ug/dL (250-450)
[2022-05-20] MEDS ORDERED: POTASSIUM CHLORIDE 20MEQ/PACKET PO NR (14:00)
[2022-05-20] MEDS: CEFTRIAXONE 2 G in DEXTROSE 5% WATER 50 ML IV SCH (14:15)
[2022-05-20 16:00] VITALS: BP 123/66
[2022-05-20] MEDS: FOLIC ACID 1MG TABLET PO SCH (16:45)
[2022-05-20 20:00] VITALS: BP 115/75
[2022-05-21] VITALS: BP 104/50
[2022-05-21 04:00] VITALS: BP 105/63
[2022-05-21] MEDS: CLONIDINE 0.1MG TABLET PO SCH ×3 (06:00→21:08)
[2022-05-21 06:21] LABS: BASOPHILS % 0.9 % (0.0-2.0); HEMATOCRIT. 21.3 % (42.0-52.0); HEMOGLOBIN. 7.6 g/dL (14.0-18.0); MEAN CORPUSCULAR HEMOGLOBIN 34.6 pg (28.0-32.0); MEAN CORPUSCULAR VOLUME 96.9 fL (80.0-94.0); MEAN PLATELET VOLUME 7.2 fl (7.4-10.4); MONOCYTES % 6.9 % (2.0-8.0); NEUTROPHILS % 72.2 % (40.0-76.0); PLATELET 140 x1000/uL (130-400); RED CELL DISTRIBUTION WIDTH 15.3 % (11.6-14.6)
[2022-05-21] MEDS: METRONIDAZOLE 500MG TABLET PO SCH ×3 (06:26→21:06)
[2022-05-21] MEDS: DEXT 5%/0.45% NACL 1000ML 1,000 ML IV SCH ×2 (06:26→18:01)
[2022-05-21 07:22] LABS: CHLORIDE 110 mEq/L (98-107)
[2022-05-21 08:00] VITALS: BP 106/60
[2022-05-21] MEDS: POLYETHYLENE GLYCOL 3350 (17GM) 1 DOSE PACK PO SCH (09:21)
[2022-05-21] MEDS: DOCUSATE SODIUM SUGAR FREE 100MG/10ML UDC PO SCH ×2 (09:21→17:00)
[2022-05-21] MEDS: PANTOPRAZOLE SODIUM 40 MG/VIAL IV SCH (09:21)
[2022-05-21] MEDS: FOLIC ACID 1MG TABLET PO SCH (09:22)
[2022-05-21] MEDS: LEVOTHYROXINE SODIUM 100 MCG/ VIAL IV SCH (09:22)
[2022-05-21] MEDS: APIXABAN 2.5 MG TABLET PO SCH ×2 (09:22→17:42)
[2022-05-21 12:00] VITALS: BP 115/70
[2022-05-21] MEDS: CEFTRIAXONE 2 G in DEXTROSE 5% WATER 50 ML IV SCH (13:38)
[2022-05-21] MEDS ORDERED: MINERAL OIL ENEMA 133ML PR NR (14:30)
[2022-05-21 15:54] VITALS: BP 127/63
[2022-05-21 20:00] VITALS: BP 130/71
[2022-05-22] VITALS: BP 124/77
[2022-05-22] MEDS: DEXT 5%/0.45% NACL 1000ML 1,000 ML IV SCH (02:25)
[2022-05-22 04:00] VITALS: BP 115/73
[2022-05-22] MEDS: METRONIDAZOLE 500MG TABLET PO SCH ×2 (06:07→14:48)
[2022-05-22] MEDS: CLONIDINE 0.1MG TABLET PO SCH ×2 (06:09→14:48)
[2022-05-22 06:14] LABS: BASOPHILS % 1.1 % (0.0-2.0); EOSINOPHILS % 3.4 % (0.0-5.0); HEMATOCRIT. 22.6 % (42.0-52.0); LYMPHOCYTES % 19.1 % (20.0-50.0); MEAN CORPUSCULAR VOLUME 96.3 fL (80.0-94.0); MEAN PLATELET VOLUME 7.4 fl (7.4-10.4); MONOCYTES % 7.9 % (2.0-8.0); NEUTROPHILS % 68.5 % (40.0-76.0); PLATELET 145 x1000/uL (130-400); RED BLOOD CELL COUNT 2.34 mill/uL (4.7-6.1); RED CELL DISTRIBUTION WIDTH 15.1 % (11.6-14.6)
[2022-05-22 07:13] LABS: CHLORIDE 111 mEq/L (98-107)
[2022-05-22 08:00] VITALS: BP 110/71
[2022-05-22] MEDS: POLYETHYLENE GLYCOL 3350 (17GM) 1 DOSE PACK PO SCH (08:40)
[2022-05-22] MEDS: DOCUSATE SODIUM SUGAR FREE 100MG/10ML UDC PO SCH ×2 (08:40→17:40)
[2022-05-22] MEDS: FOLIC ACID 1MG TABLET PO SCH (08:40)
[2022-05-22] MEDS: PANTOPRAZOLE SODIUM 40 MG/VIAL IV SCH (08:40)
[2022-05-22] MEDS: APIXABAN 2.5 MG TABLET PO SCH ×2 (08:40→17:40)
[2022-05-22] MEDS: LEVOTHYROXINE SODIUM 100 MCG/ VIAL IV SCH (09:52)
[2022-05-22 12:00] VITALS: BP 118/79
[2022-05-22] MEDS: CEFTRIAXONE 2 G in DEXTROSE 5% WATER 50 ML IV SCH (14:47)
[2022-05-22 16:00] VITALS: BP 120/74
[2022-05-22] MEDS ORDERED: BISACODYL 10MG SUPP PR PRN (16:15)
[2022-05-22] MEDS ORDERED: BISACODYL 10MG SUPP PR NR (16:15)
[2022-05-22 21:10] VITALS: BP 113/65
== END 2022-05-22 21:30 | disposition home health service (06) | DRG 871 ==
LOC: ER 12:49 → 7EST 15:59 → EDBEDREQ 16:04 → EDBEDREQTM 16:04 → ENRESERV 16:11
PROVIDERS: ADMIT Internal Medicine; ATTEND Internal Medicine
PROC: 4A00X4Z Measurement of Central Nervous Electrical Activity, External Approach (ICD-10-PCS; principal; 2022-05-13)
PROC: 05H633Z Insertion of Infusion Device into Left Subclavian Vein, Percutaneous Approach (ICD-10-PCS; 2022-05-19)
PROC: B547ZZA Ultrasonography of Left Subclavian Vein, Guidance (ICD-10-PCS; 2022-05-19)
DX: A40.9 Streptococcal sepsis, unspecified (principal); G93.41 Metabolic encephalopathy; N39.0 Urinary tract infection, site not specified; R47.01 Aphasia; N17.9 Acute kidney failure, unspecified; I69.354 Hemiplegia and hemiparesis following cerebral infarction affecting left non-dominant side; I48.20 Chronic atrial fibrillation, unspecified; K57.92 Diverticulitis of intestine, part unspecified, without perforation or abscess without bleeding; E03.9 Hypothyroidism, unspecified; I12.9 Hypertensive chronic kidney disease with stage 1 through stage 4 chronic kidney disease, or unspecified chronic kidney disease; E87.6 Hypokalemia; I48.0 Paroxysmal atrial fibrillation; D63.1 Anemia in chronic kidney disease; G47.33 Obstructive sleep apnea (adult) (pediatric); K40.20 Bilateral inguinal hernia, without obstruction or gangrene, not specified as recurrent; N40.0 Benign prostatic hyperplasia without lower urinary tract symptoms; F32.A Depression, unspecified; D53.9 Nutritional anemia, unspecified; K52.89 Other specified noninfective gastroenteritis and colitis; K56.41 Fecal impaction; J44.9 Chronic obstructive pulmonary disease, unspecified; N18.9 Chronic kidney disease, unspecified; Z20.822 Contact with and (suspected) exposure to COVID-19; R13.10 Dysphagia, unspecified; Z79.01 Long term (current) use of anticoagulants; Z66 Do not resuscitate; Z87.440 Personal history of urinary (tract) infections; Z87.891 Personal history of nicotine dependence
CPT/HCPCS: 36415; 36573; 36600; 70551; 71045; 74018; 74176; 76705; 80048; 80053; 80061; 80076; 80202; 80305; 80307; 80320; 80329; 81003; 82140; 82375; 82550; 82553; 82607; 82728; 82746; 82805; 82962; 83540; 83550; 83605; 83735; 83880; 84145; 84153; 84439; 84443; 84481; 84484; 85025; 85044; 85651; 86850; 86900; 87077; 87186; 87426; 92610; 93005; 93306; 95816; 99285; C9113; C9803; J0696; J1630; J1650; J3370; J3480; J3490; J7060; G0103; G0480